=== PATIENT | male | born 2000 | race Asian ===

== ENCOUNTER 2024-05-09 08:48 | Outpatient (REF) | payer MEDICAID, SELFPAY ==
--- NOTE | ~2024-05-09 | US_ITS ---
EXAMINATION: US RETROPERITONEAL COMPLETE (RENAL) CLINICAL INFORMATION: Abnormal labs. COMPARISON: None available. TECHNIQUE: Real-time imaging of the kidneys and bladder. FINDINGS: RIGHT KIDNEY: 12.2 x 5.0 x 6.9 cm (SAG x AP x TRV). The kidney is normal in size, contour, and echogenicity. Renal cortical thickness is normal. No calculi or focal parenchymal lesions. No hydronephrosis. LEFT KIDNEY: 10.0 x 5.0 x 5.6 cm (SAG x AP x TRV). The kidney is normal in size, contour, and echogenicity. Renal cortical thickness is normal. No calculi or focal parenchymal lesions. No hydronephrosis. BLADDER: Well distended and normal. Bilateral ureteral jets are demonstrated. Prevoid bladder volume is 740 mL. Postvoid bladder volume is 119 mL. PROSTATE: The prostate is not enlarged. US/US retroperitoneal comp IMPRESSION: 1. Normal-appearing kidneys. 2. 119 mL postvoid residual. Electronically signed by: Hamzah Bowman MD 05/09/2024 01:55 PM EDT
== END 2024-05-09 08:49 | disposition home or self-care (01) ==
LOC: HO.UMASIMG 08:48
PROVIDERS: Visit Provider Internal Medicine
DX: R79.9 Abnormal finding of blood chemistry, unspecified (principal)
CPT/HCPCS: 76770